=== PATIENT | female | born 1980 | race African-American/Black ===

== ENCOUNTER 2017-02-06 10:48 | Emergency (ER) | payer MEDICARE, MEDICAID ==
[2017-02-06 11:37] LABS: microscopic required? NO
[2017-02-06 11:47] LABS: BASOPHIL % 0.3 % (0-2); PLATELET COUNT 246 x10^3mcL (130-400); RED CELL DISTRIBUTION WIDTH 13.9 % (11.5-14.5)
[2017-02-06 11:56] LABS: UA SPECIFIC GRAVITY <=1.005 (1.005-1.035); urine erythrocyte NEGATIVE (NEGATIVE)
[2017-02-06 11:58] LABS: CALCIUM 8.7 mg/dL (8.5-10.1); CARBON DIOXIDE 22.2 mmol/L (21-32); CHLORIDE SERUM 105 mmol/L (98-107); CREATININE SERUM 0.5 mg/dL (0.6-1.0); GFR1 > 60 mL/min; GLUCOSE SERUM 79 mg/dL (74-106); POTASSIUM SERUM 4.2 mmol/L (3.5-5.1); SODIUM SERUM 136 mmol/L (136-145)
[2017-02-06 12:02] LABS: ALKALINE PHOSPHATASE 118 U/L (46-116); ALT/SGPT 21 U/L (14-59); AST/SGOT 19 U/L (15-37); BILIRUBIN TOTAL 0.15 mg/dL (0.20-1.00); LACTIC DEHYDROGENASE (LDH) 140 U/L (100-190); TOTAL PROTEIN, SERUM 6.9 g/dL (6.4-8.2); URIC ACID 3.6 mg/dL (2.6-6.0)
[2017-02-06 12:05] LABS: ALBUMIN 2.5 g/dL (3.4-5.0)
[2017-02-06 15:01] VITALS: BP 112/87
== END 2017-02-06 15:01 | disposition home or self-care (01) ==
LOC: ED 10:48
PROVIDERS: Emergency Medicine
DX: O13.3 Gestational [pregnancy-induced] hypertension without significant proteinuria, third trimester (principal); K21.9 Gastro-esophageal reflux disease without esophagitis; Z3A.30 30 weeks gestation of pregnancy
CPT/HCPCS: 36415; 83880

== ENCOUNTER 2017-05-02 19:51 | Emergency (ER) | payer MEDICARE, MEDICAID ==
[2017-05-02 21:00] LABS: BASOPHIL % 0.2 % (0-2); PLATELET COUNT 259 x10^3mcL (130-400)
[2017-05-02 21:05] LABS: RED CELL DISTRIBUTION WIDTH 14.9 % (11.5-14.5)
[2017-05-02 21:07] LABS: CALCIUM 9.1 mg/dL (8.5-10.1); CARBON DIOXIDE 26.1 mmol/L (21-32); CHLORIDE SERUM 107 mmol/L (98-107); CREATININE SERUM 0.7 mg/dL (0.6-1.0); GFR1 > 60 mL/min; GLUCOSE SERUM 84 mg/dL (74-106); POTASSIUM SERUM 3.7 mmol/L (3.5-5.1); SODIUM SERUM 135 mmol/L (136-145)
[2017-05-02 21:12] LABS: ALBUMIN 3.8 g/dL (3.4-5.0); ALKALINE PHOSPHATASE 108 U/L (46-116); ALT/SGPT 48 U/L (14-59); AST/SGOT 30 U/L (15-37); BILIRUBIN TOTAL 0.3 mg/dL (0.20-1.00); TOTAL PROTEIN, SERUM 8.2 g/dL (6.4-8.2)
[2017-05-02 23:06] VITALS: BP 157/107
== END 2017-05-02 23:05 | disposition home or self-care (01) ==
LOC: ED 19:51
PROVIDERS: Emergency Medicine
DX: I10 Essential (primary) hypertension (principal); K21.9 Gastro-esophageal reflux disease without esophagitis
CPT/HCPCS: J1200; J1885; J2765

== ENCOUNTER 2017-05-04 11:11 | Emergency (ER) | payer MEDICARE, MEDICAID ==
[~2017-05-04] VITALS: Ht 157.5 cm; Wt 77.7 kg
[2017-05-04 12:11] LABS: BASOPHIL % 0.2 % (0-2); PLATELET COUNT 267 x10^3mcL (130-400)
[2017-05-04 12:13] LABS: RED CELL DISTRIBUTION WIDTH 15.3 % (11.5-14.5)
[2017-05-04 12:17] LABS: CALCIUM 9.5 mg/dL (8.5-10.1); CARBON DIOXIDE 24.6 mmol/L (21-32); CHLORIDE SERUM 103 mmol/L (98-107); CREATININE SERUM 0.6 mg/dL (0.6-1.0); GFR1 > 60 mL/min; GLUCOSE SERUM 91 mg/dL (74-106); POTASSIUM SERUM 3.8 mmol/L (3.5-5.1); SODIUM SERUM 138 mmol/L (136-145)
[2017-05-04 12:29] LABS: ALBUMIN 4.3 g/dL (3.4-5.0); ALKALINE PHOSPHATASE 122 U/L (46-116); ALT/SGPT 51 U/L (14-59); AST/SGOT 31 U/L (15-37); BILIRUBIN TOTAL 0.55 mg/dL (0.20-1.00)
[2017-05-04 12:30] LABS: TOTAL PROTEIN, SERUM 9.6 g/dL (6.4-8.2)
[2017-05-04 12:44] LABS: AMPHETAMINE QUAL UR NONE DETECTED (NEG <=1000)
[2017-05-04] MEDS ORDERED: LABETALOL HYDR300 MG PO (12:55)
[2017-05-04 13:41] VITALS: BP 145/92
== END 2017-05-04 13:41 | disposition home or self-care (01) ==
LOC: ED 11:11
PROVIDERS: Emergency Medicine
DX: O11.5 Pre-existing hypertension with pre-eclampsia, complicating the puerperium (principal); K21.9 Gastro-esophageal reflux disease without esophagitis; F32.9 Major depressive disorder, single episode, unspecified
CPT/HCPCS: 36415; 83880; Q0092

== ENCOUNTER 2019-04-28 19:31 | Emergency (ER) | payer MEDICARE, OTHER ==
[~2019-04-28] VITALS: Ht 157.5 cm; Wt 94.8 kg
[~2019-04-28 19:31] MED LIST: LABETALOL HYDR300 MG PO
[2019-04-28 19:57] VITALS: Ht 157.5 cm; Wt 94.8 kg
[2019-04-28 21:44] LABS: CHLORIDE SERUM 103 mmol/L (98-107)
[2019-04-28 21:47] LABS: BASOPHIL % 0.2 % (0-2); PLATELET COUNT 345 x10^3mcL (130-400)
[2019-04-28 21:49] LABS: RED CELL DISTRIBUTION WIDTH 14.6 % (11.5-14.5)
[2019-04-28 21:57] LABS: CALCIUM 9.3 mg/dL (8.5-10.1); CARBON DIOXIDE 20.3 mmol/L (21-32); CREATININE SERUM 0.7 mg/dL (0.6-1.0); GFR1 > 60 mL/min; GLUCOSE SERUM 84 mg/dL (74-106); SODIUM SERUM 138 mmol/L (136-145)
[2019-04-28 22:05] LABS: ALBUMIN 3.9 g/dL (3.4-5.0); ALKALINE PHOSPHATASE 148 U/L (46-116); ALT/SGPT 43 U/L (14-59); AST/SGOT 33 U/L (15-37); BILIRUBIN TOTAL 0.3 mg/dL (0.20-1.00); LIPASE 91 IU/L (73-393)
[2019-04-28 22:07] LABS: TOTAL PROTEIN, SERUM 8.9 g/dL (6.4-8.2)
[2019-04-28 23:22] VITALS: BP 127/80
== END 2019-04-28 23:22 | disposition home or self-care (01) ==
LOC: ED 19:31
PROVIDERS: Emergency Medicine
DX: K52.9 Noninfective gastroenteritis and colitis, unspecified (principal); N39.0 Urinary tract infection, site not specified; K21.9 Gastro-esophageal reflux disease without esophagitis; I10 Essential (primary) hypertension; F32.9 Major depressive disorder, single episode, unspecified; Z98.890 Other specified postprocedural states
CPT/HCPCS: J2405; J7030

== ENCOUNTER 2019-07-29 16:06 | Emergency (ER) | payer MEDICARE, OTHER ==
[~2019-07-29] VITALS: Ht 157.5 cm; Wt 99.3 kg
[2019-07-29 16:23] VITALS: Ht 157.5 cm; Wt 99.3 kg
[2019-07-29 17:05] LABS: BASOPHIL % 0.4 % (0-2); PLATELET COUNT 264 x10^3mcL (130-400); RED CELL DISTRIBUTION WIDTH 15.5 % (11.5-14.5)
[2019-07-29 17:13] LABS: CALCIUM 8.2 mg/dL (8.5-10.1); CARBON DIOXIDE 25.4 mmol/L (21-32); CHLORIDE SERUM 106 mmol/L (98-107); CREATININE SERUM 0.7 mg/dL (0.6-1.0); GFR1 > 60 mL/min; GLUCOSE SERUM 77 mg/dL (74-106); POTASSIUM SERUM 3.7 mmol/L (3.5-5.1); SODIUM SERUM 141 mmol/L (136-145)
[2019-07-29 17:17] LABS: ALKALINE PHOSPHATASE 113 U/L (46-116); ALT/SGPT 69 U/L (14-59); AST/SGOT 43 U/L (15-37); BILIRUBIN TOTAL 0.2 mg/dL (0.20-1.00); TOTAL PROTEIN, SERUM 7.6 g/dL (6.4-8.2)
[2019-07-29 17:18] LABS: ALBUMIN 3.3 g/dL (3.4-5.0)
[2019-07-29 19:37] VITALS: BP 115/66
== END 2019-07-29 19:37 | disposition home or self-care (01) ==
LOC: ED 16:06
PROVIDERS: Emergency Medicine
DX: I10 Essential (primary) hypertension (principal); K21.9 Gastro-esophageal reflux disease without esophagitis; F32.9 Major depressive disorder, single episode, unspecified; Z98.890 Other specified postprocedural states
CPT/HCPCS: J0360; J2405; Q0092

== ENCOUNTER 2019-08-16 23:13 | Emergency (ER) | payer MEDICARE, OTHER ==
[~2019-08-16] VITALS: Ht 157.5 cm; Wt 95.7 kg
[2019-08-16 23:42] VITALS: BP 133/94; Ht 157.5 cm; Wt 95.7 kg
== END 2019-08-17 01:32 | disposition left against medical advice (07) ==
LOC: ED 23:13
DX: Z53.21 Procedure and treatment not carried out due to patient leaving prior to being seen by health care provider (principal)

== ENCOUNTER 2020-02-12 00:15 | Emergency (ER) | payer OTHER ==
[~2020-02-12] VITALS: Ht 157.5 cm; Wt 93.0 kg
[2020-02-12 00:26] VITALS: Ht 157.5 cm; Wt 93.0 kg
[2020-02-12 01:17] VITALS: BP 123/88
== END 2020-02-12 01:17 | disposition home or self-care (01) ==
LOC: ED 00:15
DX: S76.912A Strain of unspecified muscles, fascia and tendons at thigh level, left thigh, initial encounter (principal); S80.02XA Contusion of left knee, initial encounter; I10 Essential (primary) hypertension; K21.9 Gastro-esophageal reflux disease without esophagitis; Z98.890 Other specified postprocedural states; Z91.013 Allergy to seafood; X58.XXXA Exposure to other specified factors, initial encounter; Y93.89 Activity, other specified; Y92.89 Other specified places as the place of occurrence of the external cause; Y99.8 Other external cause status
CPT/HCPCS: Q0092

== ENCOUNTER 2020-08-16 23:07 | Emergency (ER) | payer OTHER ==
[~2020-08-16] VITALS: Ht 157.5 cm; Wt 93.9 kg
[2020-08-16 23:21] VITALS: Ht 157.5 cm; Wt 93.9 kg
[2020-08-16 23:53] LABS: CALCIUM 9.2 mg/dL (8.5-10.1); CARBON DIOXIDE 27.2 mmol/L (21-32); CHLORIDE SERUM 101 mmol/L (98-107); CREATININE SERUM 0.9 mg/dL (0.6-1.0); GFR1 > 60 mL/min; GLUCOSE SERUM 96 mg/dL (74-106); POTASSIUM SERUM 3.9 mmol/L (3.5-5.1); SODIUM SERUM 135 mmol/L (136-145)
[2020-08-16 23:54] LABS: BASOPHIL % 1.1 % (0-2); PLATELET COUNT 336 x10^3mcL (130-400); RED CELL DISTRIBUTION WIDTH 13.5 % (11.5-14.5)
[2020-08-16 23:57] LABS: ALBUMIN 3.7 g/dL (3.4-5.0); ALKALINE PHOSPHATASE 116 U/L (46-116); ALT/SGPT 39 U/L (14-59); AST/SGOT 34 U/L (15-37); BILIRUBIN TOTAL 0.2 mg/dL (0.20-1.00); LIPASE 108 IU/L (73-393)
[2020-08-16 23:59] LABS: TOTAL PROTEIN, SERUM 8.3 g/dL (6.4-8.2)
[2020-08-17 04:11] VITALS: BP 137/85
== END 2020-08-17 04:11 | disposition home or self-care (01) ==
LOC: ED 23:07
DX: K80.50 Calculus of bile duct without cholangitis or cholecystitis without obstruction (principal); I10 Essential (primary) hypertension; K21.9 Gastro-esophageal reflux disease without esophagitis; Z91.013 Allergy to seafood
CPT/HCPCS: J1885; J3010; Q0162